=== PATIENT | female | born 1940 | race Hispanic/Latino ===

== ENCOUNTER → 2023-03-25 | Outpatient (CLI) | payer OTHER ==
[2023-03-25 17:17] LABS: ALBUMIN 3.8 g/dL (3.5-5.0); BILIRUBIN,TOTAL 0.4 mg/dL (0.2-1.0); CREATININE 0.9 mg/dL (0.5-1.5); MAGNESIUM 2.1 mg/dL (1.80-2.40); POTASSIUM 4.2 mmol/L (3.5-5.1); TOTAL PROTEIN, SERUM 7.7 g/dL (6.0-8.3)
== END | disposition home or self-care (01) ==
LOC: LAB 16:11
PROVIDERS: ATTEND Internal Medicine Cardiovascular Disease
DX: I10 Essential (primary) hypertension (principal); Z95.0 Presence of cardiac pacemaker
CPT/HCPCS: 36415; 80053; 83735; 83880

== ENCOUNTER → 2023-08-07 | Outpatient (CLI) | payer OTHER | END | disposition home or self-care (01) | LOC: SHCH 14:50 | PROVIDERS: ATTEND Internal Medicine Cardiovascular Disease | DX: I87.1 Compression of vein (principal); I87.2 Venous insufficiency (chronic) (peripheral) | CPT/HCPCS: 93970 ==

== ENCOUNTER → 2024-05-13 | Outpatient (CLI) | payer OTHER ==
[~2024-05-13] MED LIST: LEVO88TA7 PO
--- NOTE | 2024-05-15 09:35 | HMCSR ---
APPROVED REPORT EXAM: Two-dimensional and M-mode echocardiogram with Doppler and color Doppler. INDICATION ICD: R06.02 Shortness of breath 2D Dimensions RVDd3.7 cmLVEF(%)58.3 (>50%)LVED Vol(simp.)96.0 mL IVSd1.1 (0.7-1.1cm)FS(%)31 %LVES Vol(simp.)45.0 mL LVDd4.8 (3.8-5.6cm)Ao Root(2D)2.8 (2.0-3.7cm)LVEF(%, simp.)53 % PWd1.1 (0.7-1.1cm)LVOT diam1.8 (1.8-2.4cm)LA ESV INDEX (BP)29.38 mL/m2 LVDs3.3 (2.5-4.0cm)IVC diam2.2 cm Aortic Valve AoV Vmax1.2 m/Quiana Peak GR5.7 mmHgLVOT Vmax1.0 m/s AoV VTI0.3 mAo Mean GR3.3 mmHgLVOT VTI0.22 m DARRYL (VMAX)2.1 cm2AVA (VTI) 2.1 cm2 Mitral Valve MV E Vmax88.3 cm/sDECEL Joab115 ms MV A Ujhr774.2 cm/sP 1/2 T60 ms E/A ratio0.9MVA (PHT)3.7 cm2 TDI E/E' Bneush93.3E/E' Dtmwzdy32.6 Pulmonary Valve PV Vmax1.2 m/sPV VTI0.24 mPV Mean GR3 mmHg PV Peak GR5.5 mmHg Tricuspid Valve TR Vmax2.8 m/sRAP (EST) 8 cmZpEOIJ57.2 mmHg TR Peak GR32.2 mmHg Left Ventricle Left ventricular cavity size is normal. Septal motion consistent with paced rhythm. There is normal l eft ventricular wall thickness. LVEF is 50-55%. No left ventricle thrombus noted on this study. Grade 2 diastolic dysfunction. Right Ventricle The right ventricle is normal size. The right ventricular systolic function is normal. Atria The left atrium size is normal. The right atrium is mildly dilated. Aortic Valve Aortic valve is trileaflet. Aortic valve leaflets are sclerotic but open well. Trace aortic regurgita tion. There is no aortic valvular stenosis. Mitral Valve Mitral valve leaflets are mildly sclerotic but open well. Mitral regurgitation is trace to mild. Ther e is no mitral valve stenosis. Tricuspid Valve The tricuspid valve leaflets appear normal. There is mild tricuspid regurgitation. Right ventricular systolic pressure is estimated at 40 mmHg. Pulmonic Valve Pulmonic valve is not well visualized. There is trace pulmonic valvular regurgitation. Great Vessels The aortic root is normal in size. IVC is dilated and collapses >50% with inspiration. Pericardium No pericardial effusion. Conclusion Left ventricular cavity size is normal. LVEF is 50-55%. Grade 2 diastolic dysfunction. Septal motion consistent with paced rhythm. The right ventricle is normal size. The left atrium size is normal. Aortic valve is trileaflet. Aortic valve leaflets are sclerotic but open well. Trace aortic regurgitation. Mitral valve leaflets are mildly sclerotic but open well. Mitral regurgitation is trace to mild. There is mild tricuspid regurgitation. Right ventricular systolic pressure is estimated at 40 mmHg. There is trace pulmonic valvular regurgitation. The aortic root is normal in size. IVC is dilated and collapses >50% with inspiration. No pericardial effusion.
== END | disposition home or self-care (01) ==
LOC: SHCH 13:58
PROVIDERS: ATTEND Internal Medicine Cardiovascular Disease
DX: I08.3 Combined rheumatic disorders of mitral, aortic and tricuspid valves (principal); R06.02 Shortness of breath
CPT/HCPCS: 93306